=== PATIENT | male | born 1990 | race Caucasian/White ===

== ENCOUNTER 2016-10-11 12:10 | Emergency (ER) | payer MEDICAID ==
[2016-10-11 12:12] VITALS: RESP 16
[2016-10-11] MEDS ORDERED: SULFAMETHOX/TMP 800/160 MG 1 TAB PO ONE (12:33)
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
[2016-10-11 14:16] VITALS: BP 121/84; PULSE 101; TEMP 98.4; O2SAT 99
== END 2016-10-11 14:23 | disposition home or self-care (01) ==
PROC: 0H9DXZZ Drainage of Right Lower Arm Skin, External Approach (ICD-10-PCS; principal; 2016-10-11)
DX: L03.113 Cellulitis of right upper limb (principal); F17.200 Nicotine dependence, unspecified, uncomplicated